=== PATIENT | male | born 1985 | race Two or more races ===

== ENCOUNTER 2016-08-07 02:25 | Emergency (ER) | payer MEDICAID ==
[~2016-08-07] VITALS: Ht 175.3 cm; Wt 81.6 kg
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
--- NOTE | 2016-08-07 04:15 | NUR ---
DR. HENDERSON AT BEDSIDE FOR EVAL.
[2016-08-07] MEDS ORDERED: IBUPROFEN 400 MG TABLET PO ONE (04:30)
--- NOTE | 2016-08-07 04:33 | NUR ---
Patient discharged to home in stable condition. Written and verbal after care instructions given. Patient verbalizes understanding of instruction. ambulatory with a steady gait
[2016-08-07 04:34] VITALS: BP 132/76
== END 2016-08-07 04:34 | disposition home or self-care (01) ==
LOC: ER 02:28
DX: S16.1XXA Strain of muscle, fascia and tendon at neck level, initial encounter (principal); S09.90XA Unspecified injury of head, initial encounter; V53.6XXA Passenger in pick-up truck or van injured in collision with car, pick-up truck or van in traffic accident, initial encounter; Y93.89 Activity, other specified; Y92.488 Other paved roadways as the place of occurrence of the external cause; Y99.8 Other external cause status
CPT/HCPCS: 99283; A4606; Z7610